=== PATIENT | female | born 1970 | race Caucasian/White ===

== ENCOUNTER → 2016-09-23 | Outpatient (CLI) | payer OTHER ==
[~2016-09-23] MED LIST: AMARYL 2MG TABLE2 MG PO; FISH OIL 1,0001 EAC4 PO; HYDROCHLOROTHIA25 MG PO; IMITREX50 MG PO; LORTAB 5-325 M1 EACH PO; METFORMIN HCL1000 MG PO; NAPROSYN500 MG PO; NYSTATIN1 EAC2 MC; PROMETHAZINE HC25 M1 PO; ROBAXIN500 MG PO; TOPAMAX50 MG PO; VITAMIN D2000 UNI1 PO
== END ==
LOC: EMI 14:22
DX: R51 Headache (principal)

== ENCOUNTER → 2020-09-22 | Outpatient (CLI) | payer OTHER ==
[~2020-09-22] MED LIST changes: +ALLERGY RELIEF10 M1 PO; +AMARYL4 MG PO; +ANTIVERT 12.512.5 MG PO; +BACLOFEN10 MG PO; +BENTYL 20MG TAB20 MG PO; +CELEBREX 200MG200 MG PO; +DITROPAN 5 MG TA5 MG PO; +ECOTRIN81 MG PO; +ENULOSE10 GM/15 M PO; +ESCITALOPRAM OXA5 MG PO; +FLAGYL500 MG PO; +FLORINEF 0.1 M0.1 MG PO; +GABAPENTIN100 MG PO; +GLIMEPIRIDE4 MG PO; +ISOSORBIDE MONO30 MG PO; +KEFLEX CAP 500500 MG PO; +KLONOPIN TAB 00.5 MG PO; +METOPROLOL TART25 MG PO; +PANTOPRAZOLE SO40 MG PO; +PRAZOSIN HCL1 MG PO; +PROTONIX40 MG PO; +TOLTERODINE TART4 MG PO; +TYLENOL W/CODEIN1 E1 PO; +VOLTAREN EC 5050 MG PO; +ZANAFLEX4 MG PO; +ZOFRAN ODT 4 MG4 MG SL; +ZOFRAN4 MG PO
== END ==
LOC: HEART 5 08-19 10:00
DX: I20.9 Angina pectoris, unspecified (principal); R06.02 Shortness of breath; R94.39 Abnormal result of other cardiovascular function study
CPT/HCPCS: 78452; A9502; J2785

== ENCOUNTER → 2020-10-08 | Outpatient (CLI) | payer OTHER | LOC: HEART 5 09-22 09:00 | DX: R94.39 Abnormal result of other cardiovascular function study (principal); R07.9 Chest pain, unspecified | CPT/HCPCS: 93306 ==

== ENCOUNTER → 2020-10-16 | Outpatient (CLI) | payer OTHER ==
[2020-10-16 10:41] LABS: HEMOGLOBIN 11.8 gm/dl (12.3-15.3); RED BLOOD COUNT 3.98 M/UL (4.00-5.10); WHITE BLOOD COUNT 7.7 K/UL (4.5-11.0)
[2020-10-16 11:07] LABS: BUN/CREATININE RATIO 19 (0-10)
[2020-10-17 05:09] LABS: ESTRADIOL 9.2 pg/mL (.); FSH, SERUM 17.6 mIU/mL (.); PROGESTERONE <0.1 ng/mL (.)
== END ==
LOC: LAB 09:30
PROVIDERS: Emergency Medicine; Internal Medicine Interventional Cardiology
DX: R94.39 Abnormal result of other cardiovascular function study (principal); I20.8 Other forms of angina pectoris; I10 Essential (primary) hypertension; E11.9 Type 2 diabetes mellitus without complications; R53.83 Other fatigue; Z79.899 Other long term (current) drug therapy
CPT/HCPCS: 36415; 80048; 82670; 83001; 83002; 84144; 85025; 85610; 85730; 93005

== ENCOUNTER → 2020-10-20 | Outpatient (CLI) | payer OTHER | LOC: CATH 06:30 | DX: Z01.810 Encounter for preprocedural cardiovascular examination (principal); R94.39 Abnormal result of other cardiovascular function study; I20.8 Other forms of angina pectoris; I10 Essential (primary) hypertension; E11.9 Type 2 diabetes mellitus without complications | CPT/HCPCS: 82962; 99152; C1769; J1644; J2250; J3010; J7030; Q9967 ==

== ENCOUNTER → 2021-01-20 | Outpatient (CLI) | payer OTHER | LOC: NM 12-30 09:00 | DX: R11.11 Vomiting without nausea (principal) | CPT/HCPCS: 78264; A9541 ==

== ENCOUNTER → 2021-03-19 | Outpatient (CLI) | payer OTHER | LOC: CT 08:24 | DX: R10.10 Upper abdominal pain, unspecified (principal); R11.10 Vomiting, unspecified; K57.30 Diverticulosis of large intestine without perforation or abscess without bleeding | CPT/HCPCS: 36415; 82565; 84520; Q9967 ==

== ENCOUNTER → 2021-04-26 | Outpatient (CLI) | payer OTHER | LOC: KOH-I 08:44 | DX: R15.9 Full incontinence of feces (principal); M51.36 Other intervertebral disc degeneration, lumbar region | CPT/HCPCS: 72148 ==

== ENCOUNTER → 2021-06-10 | Outpatient (CLI) | payer OTHER | LOC: KOH-I 10:18 | DX: M54.50 Low back pain, unspecified (principal); M51.37 Other intervertebral disc degeneration, lumbosacral region | CPT/HCPCS: 72100 ==

== ENCOUNTER → 2021-08-19 | Outpatient (CLI) | payer OTHER | LOC: KOH-I 08-13 14:00 | DX: G43.009 Migraine without aura, not intractable, without status migrainosus (principal) | CPT/HCPCS: 70450; 74176 ==

== ENCOUNTER 2021-11-03 09:16 | Emergency (ER) | payer OTHER ==
[2021-11-03 10:50] LABS: HEMOGLOBIN 12.8 gm/dl (12.3-15.3); RED BLOOD COUNT 4.3 M/UL (4.00-5.10); WHITE BLOOD COUNT 7.8 K/UL (4.5-11.0)
[2021-11-03 11:12] LABS: BUN/CREATININE RATIO 12 (0-10)
[2021-11-03] MEDS ORDERED: ZOFRAN ODT 4 MG4 MG PO (14:11)
== END 2021-11-03 14:25 | disposition home or self-care (01) ==
LOC: ER1 09:16
PROVIDERS: Family Medicine
DX: R07.89 Other chest pain (principal); R51.9 Headache, unspecified; R11.2 Nausea with vomiting, unspecified; M25.512 Pain in left shoulder; G89.29 Other chronic pain; E11.9 Type 2 diabetes mellitus without complications; Z79.84 Long term (current) use of oral hypoglycemic drugs; Z88.2 Allergy status to sulfonamides; Z86.69 Personal history of other diseases of the nervous system and sense organs
CPT/HCPCS: 70450; 71045; 73030; 80053; 82550; 82553; 84484; 85025; 93005; 96374; 99284; J2405

== ENCOUNTER → 2021-12-08 | Outpatient (CLI) | payer OTHER ==
[~2021-12-08] MED LIST changes: +ZOFRAN ODT 4 MG4 MG PO
== END ==
LOC: KOH-I 09:37
DX: R10.12 Left upper quadrant pain (principal); R74.8 Abnormal levels of other serum enzymes; K76.0 Fatty (change of) liver, not elsewhere classified
CPT/HCPCS: 76700